=== PATIENT | male | born 1945 | race Caucasian/White ===

== ENCOUNTER → 2019-12-09 | Outpatient (CLI) | payer OTHER ==
[~2019-12-09] MED LIST: AEC81 PO; ASCO-440 PO; GARL1CAP7 PO; L.AC1CAP6 PO; METO-408 PO; MULT-1203 PO; NIAC500T22 PO; OMEG1CAP12 PO; ROSU10TA22 PO; UBIQ75CA PO
== END | disposition home or self-care (01) ==
LOC: RAH 10:50
PROVIDERS: ATTEND Internal Medicine Critical Care Medicine
DX: Z13.6 Encounter for screening for cardiovascular disorders (principal)
CPT/HCPCS: 75571

== ENCOUNTER → 2020-02-23 | Outpatient (CLI) | payer OTHER | END | disposition home or self-care (01) | LOC: SHCH 10:38 | PROVIDERS: ATTEND Internal Medicine Cardiovascular Disease | DX: I10 Essential (primary) hypertension (principal) | CPT/HCPCS: 93306 ==

== ENCOUNTER → 2020-02-24 | Outpatient (CLI) | payer OTHER ==
[~2020-02-24] MED LIST changes: +REGADENOSON 0.4 MG/5 ML PF SYG IVP SCH
== END | disposition home or self-care (01) ==
LOC: RAH 08:40
PROVIDERS: ATTEND Internal Medicine Cardiovascular Disease
DX: I25.10 Atherosclerotic heart disease of native coronary artery without angina pectoris (principal); I10 Essential (primary) hypertension
CPT/HCPCS: 78452; 93017; 96374; A9500 ×2; J2785

== ENCOUNTER → 2023-12-03 | Outpatient (CLI) | payer OTHER ==
[~2023-12-03] MED LIST changes: -REGADENOSON 0.4 MG/5 ML PF SYG IVP SCH
== END | disposition home or self-care (01) ==
LOC: RAH 12:21
PROVIDERS: ATTEND Internal Medicine Critical Care Medicine
DX: Z13.6 Encounter for screening for cardiovascular disorders (principal)
CPT/HCPCS: 75571

== ENCOUNTER → 2024-11-13 | Outpatient (CLI) | payer OTHER ==
[2024-11-13 12:53] LABS: T4 (THYROXINE) 8.8 ug/dL (4.7-13.3); THYROID STIMULATING HORMONE 2.23 uIU/mL (0.36-3.74)
== END | disposition home or self-care (01) ==
LOC: LAB 11:02
PROVIDERS: ATTEND Nurse Practitioner Acute Care
DX: I10 Essential (primary) hypertension (principal)
CPT/HCPCS: 36415; 84436; 84443; 84479

== ENCOUNTER → 2024-11-27 | Outpatient (CLI) | payer OTHER ==
[~2024-11-27] MED LIST changes: +IOHEXOL-350 75 ML VIAL IV ONE
--- NOTE | 2024-11-27 15:14 | HMCIMG ---
CT CHEST W/WO CONTRAST HISTORY: COPD COMPARISON: None TECHNIQUE: Multiple sequential axial images of the chest were obtained from the thoracic inlet through upper abdomen. Patient was not given contrast through intravenous route. FINDINGS: There is no evidence of pulmonary nodule or parenchymal disease. COPD changes are seen. No pleural effusion or pericardial effusion is seen. There is no evidence of pneumothorax. There are normal size mediastinal and hilar lymph nodes. The heart is not enlarged. Coronary artery calcifications are seen Degenerative changes of the thoracolumbar spine are present. There is no evidence of adrenal nodule. IMPRESSION: 1. No evidence of pulmonary nodule or effusion is seen. COPD with interstitial fibrosis. CT was performed with one or more following dose reduction techniques: automated exposure control, adjustment of the mA and kv according to patient's size, or use of a iterative reconstruction technique.
== END | disposition home or self-care (01) ==
LOC: RAH 13:15
PROVIDERS: ATTEND Internal Medicine Critical Care Medicine
DX: J84.10 Pulmonary fibrosis, unspecified (principal); J44.9 Chronic obstructive pulmonary disease, unspecified; I25.10 Atherosclerotic heart disease of native coronary artery without angina pectoris; M47.815 Spondylosis without myelopathy or radiculopathy, thoracolumbar region
CPT/HCPCS: 71270; Q9967

== ENCOUNTER → 2024-12-22 | Outpatient (CLI) | payer OTHER ==
[~2024-12-22] MED LIST changes: -IOHEXOL-350 75 ML VIAL IV ONE
--- NOTE | 2024-12-23 07:37 | HMCSR ---
APPROVED REPORT EXAM: Two-dimensional and M-mode echocardiogram with Doppler and color Doppler. INDICATION ICD: I10.0 Essential (primary) Hypertension 2D Dimensions RVDd3.9 cmLVEF(%)59.6 (>50%)LVED Vol(simp.)89.0 mL IVSd0.8 (0.7-1.1cm)FS(%)32 %LVES Vol(simp.)38.0 mL LVDd4.6 (3.8-5.6cm)Ao Root(2D)3.4 (2.0-3.7cm)LVEF(%, simp.)57 % PWd0.8 (0.7-1.1cm)LVOT diam2.1 (1.8-2.4cm)LA ESV INDEX (BP)30.12 mL/m2 LVDs3.1 (2.5-4.0cm)IVC diam1.9 cm Aortic Valve AoV Vmax0.9 m/Julia Peak GR3.3 mmHgLVOT Vmax0.7 m/s AoV VTI0.2 mAo Mean GR1.8 mmHgLVOT VTI0.17 m ROYAL (VMAX)2.8 cm2AVA (VTI) 2.8 cm2 Mitral Valve MV E Vmax83.1 cm/sDECEL Oemi220 ms MV A Vmax61.6 cm/sP 1/2 T57 ms E/A ratio1.3MVA (PHT)3.9 cm2 MR Max PG130 mmHg TDI E/E' Pjqkjv51.0E/E' Lateral9.3 Pulmonary Valve PV Vmax0.8 m/sPV VTI0.19 mPV Mean GR2 mmHg PV Peak GR2.5 mmHg Tricuspid Valve TR Vmax2.8 m/sRAP (EST) 8 kzYlJNLF00.2 mmHg TR Peak GR32.2 mmHg Left Ventricle Left ventricular cavity size is normal. There is normal LV segmental wall motion. There is normal lef t ventricular wall thickness. LVEF is 55-60%. No left ventricle thrombus noted on this study. Indeter minate diastolic dysfunction. Right Ventricle The right ventricle is normal size. The right ventricular systolic function is normal. Atria The left atrium size is normal. The right atrium is mildly dilated. Aortic Valve The aortic valve is mildly to moderately sclerotic. Trace aortic regurgitation. There is no aortic va lvular stenosis. Mitral Valve The mitral valve is mildly thickened. Mitral regurgitation is moderate. There is no mitral valve sten osis. Tricuspid Valve The tricuspid valve leaflets appear normal. There is mild tricuspid regurgitation. Right ventricular systolic pressure is estimated at 40 mmHg. Pulmonic Valve The pulmonic valve leaflets are thin and pliable; valve motion is normal. There is trace pulmonic adrien vular regurgitation. Great Vessels The aortic root is normal in size. IVC is dilated and collapses >50% with inspiration. Pericardium No pericardial effusion. Conclusion Left ventricular cavity size is normal. LVEF is 55-60%. The right ventricle is normal size. The left atrium size is normal. The aortic valve is mildly to moderately sclerotic. Trace aortic regurgitation. There is no aortic valvular stenosis. The mitral valve is mildly thickened. Mitral regurgitation is moderate. There is no mitral valve stenosis. There is mild tricuspid regurgitation. Right ventricular systolic pressure is estimated at 40 mmHg. There is trace pulmonic valvular regurgitation. The aortic root is normal in size. IVC is dilated and collapses >50% with inspiration. No pericardial effusion.
== END | disposition home or self-care (01) ==
LOC: SHCH 11:21
PROVIDERS: ATTEND Internal Medicine Cardiovascular Disease
DX: I08.3 Combined rheumatic disorders of mitral, aortic and tricuspid valves (principal); I11.9 Hypertensive heart disease without heart failure
CPT/HCPCS: 93306

== ENCOUNTER → 2025-01-25 | Outpatient (CLI) | payer OTHER ==
--- NOTE | 2025-01-25 16:04 | HMCSR ---
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 (R) 97 / cm/sSubl. (L) 127 / cm/s ICA/CCA 1.04ICA/CCA 1.25 Technologist Impression Minimal plaque noted in the bilateral carotids VERA & LICA appear patent without hemodynamic significance. Bilateral vertebral arteries appear antegrade. Conclusion Minimal plaque noted in the bilateral carotids VERA & LICA appear patent without hemodynamic significance. Bilateral vertebral arteries appear antegrade. Conclusion Minimal plaque noted in the bilateral carotids VERA & LICA appear patent without hemodynamic significance. Bilateral vertebral arteries appear antegrade.
== END | disposition home or self-care (01) ==
LOC: SHCH 10:14
PROVIDERS: ATTEND Internal Medicine Cardiovascular Disease
DX: I65.23 Occlusion and stenosis of bilateral carotid arteries (principal)
CPT/HCPCS: 93880